=== PATIENT | female | born 1970 | race Caucasian/White ===

== ENCOUNTER 2022-05-18 10:10 | Emergency (ER) | payer SELFPAY ==
[~2022-05-18] VITALS: Ht 170.2 cm; Wt 77.1 kg
[2022-05-18 10:45] VITALS: BP_SYST 149
--- NOTE | 2022-05-18 11:00 | NUR ---
pt ambulated to bed 5
--- NOTE | 2022-05-18 11:10 | NUR ---
pt evaluated by dr lainez at bedside
--- NOTE | 2022-05-18 11:13 | NUR ---
51yo f with c/o hypogastric pain since this morning. pain 9/10, cramping. denies n/v/d. no meds taken. in ed, vss. aox3. clear breath sounds. abdomen soft, nontender. ermd made aware of pt status.
--- NOTE | 2022-05-18 11:43 | NUR ---
wet mount brought to lab
[2022-05-18 12:04] LABS: BILIRUBIN,URINE NEGATIVE (NEGATIVE); CLARITY/URINE CLEAR (CLEAR); COLOR,URINE YELLOW (YELLOW); GLUCOSE,URINE NEGATIVE (NEGATIVE); KETONES,URINE NEGATIVE (NEGATIVE); LEUKOCYTE ESTERASE ,URINE NEGATIVE (NEGATIVE); NITRITE, URINE NEGATIVE (NEGATIVE); PH,URINE 5.5 (5.0-8.0); PROTEIN URINE NEGATIVE (NEGATIVE); UROBILINOGEN,URINE 0.2 (0.2-1.0)
[2022-05-18 12:10] LABS: BLOOD, URINE TRACE (NEGATIVE)
[2022-05-18] MEDS ORDERED: METR-154 PO (13:34)
[2022-05-18] MEDS ORDERED: NAPR-690 PO (13:34)
[2022-05-18] MEDS ORDERED: metroNIDAZOLE 500 mg/NS 100 ML IV ONE (13:45)
[2022-05-18 13:48] VITALS: BP_SYST 149
--- NOTE | 2022-05-18 13:49 | NUR ---
Patient given written and verbal discharge instructions and verbalizes understanding. ER MD discussed with patient the results and treatment provided. Patient in stable condition. ID arm band removed. Rx of metronidazole, naproxen given. Patient educated on pain management and to follow up with PMD. Pain Scale 3. Opportunity for questions provided and answered. Medication side effect fact sheet provided.
[2022-05-18 13:59] LABS: CALCIUM 9.3 mg/dL (8.4-11.0); CREATININE 0.8 mg/dL (0.55-1.30)
[2022-05-18 14:03] LABS: ALBUMIN 3.7 g/dL (3.4-4.8); TOTAL BILIRUBIN 0.5 mg/dL (0.0-1.0)
[2022-05-18 21:40] LABS: BACTERIA,URINE FEW /HPF (None Seen); URIC ACID CRYSTALS,URINE 0-10 /HPF (None Seen); WBC,URINE 0-3 /HPF (0-3)
[2022-05-18 21:41] LABS: MUCUS,URINE None Seen /LPF (None Seen)
== END 2022-05-18 13:48 | disposition home or self-care (01) ==
LOC: SED 10:10
DX: N76.0 Acute vaginitis (principal); B96.89 Other specified bacterial agents as the cause of diseases classified elsewhere; Z79.899 Other long term (current) drug therapy
CPT/HCPCS: 36415; 76856-TC; 80053; 81000; 81025; 83605; 87040; 87210-TC; 99284